=== PATIENT | male | born 1960 | race Caucasian/White ===

== ENCOUNTER → 2024-01-10 | Day surgery (SDC) | payer OTHER ==
[~2024-01-10] MED LIST: AMLODIPINE BESY10 MG PO; DIOVAN80 MG PO; FENTANYL CITRATE/PF 100MCG/2 ML INJ ONE; HYDROCHLOROTHIA25 MG PO; TYLENOL325 M2
[2024-01-10] MEDS: LACTATED RINGER'S 1,000 ML ONE (06:47)
[2024-01-10 06:55] LABS: ANION GAP 12.9 mmol/L (8-16); CALCIUM 9.4 mg/dL (8.4-10.2); CREATININE, SERUM 0.95 mg/dL (0.72-1.25); POTASSIUM 3.9 mmol/L (3.5-5.1)
[2024-01-10 07:41] VITALS: TEMP 97.4
[2024-01-10] MEDS: FENTANYL CITRATE/PF 100MCG/2 ML INJ ONE (07:55)
[2024-01-10 08:34] VITALS: BP 177/98; PULSE 60; RESP 18; O2SAT 95
== END | disposition home or self-care (01) ==
LOC: OR 05:30
PROVIDERS: ATTEND Specialist
DX: G56.03 Carpal tunnel syndrome, bilateral upper limbs (principal); E11.9 Type 2 diabetes mellitus without complications; I10 Essential (primary) hypertension; E78.5 Hyperlipidemia, unspecified; J44.9 Chronic obstructive pulmonary disease, unspecified; J30.1 Allergic rhinitis due to pollen; Z79.899 Other long term (current) drug therapy; Z68.30 Body mass index [BMI] 30.0-30.9, adult; Z87.891 Personal history of nicotine dependence
CPT/HCPCS: 29848; 36415; 80048; 93005; J0690; J3010; J7121